=== PATIENT | female | born 1965 | race Caucasian/White ===

== ENCOUNTER 2016-11-17 21:25 | Emergency (ER) | payer OTHER, BC ==
[~2016-11-17 21:25] MED LIST: ACTOS30 MG PO; BENICAR20 MG PO; BENTYL20 MG PO; GLUCOTROL5 MG PO; LOW DOSE ASPIRI81 M1 PO; MULTIVITAMIN1 TAB PO; NORCO 5/325 TAB1 TAB PO; PRILOSEC20 MG PO
[2016-11-17] MEDS ORDERED: NOVOLOG MI100 UNITS/ SC (22:26)
[2016-11-17] MEDS ORDERED: AMLODIPINE BESI25 GM MC (22:26)
[2016-11-17] MEDS ORDERED: LIPITOR20 M1 PO (22:26)
[2016-11-17] MEDS ORDERED: COZAAR50 M1 PO (22:26)
[2016-11-17] MEDS ORDERED: HYDROCODON-ACE1 EA16 PO (23:19)
== END 2016-11-17 23:26 ==
LOC: EDMED 21:25
DX: S70.11XA Contusion of right thigh, initial encounter (principal); E11.9 Type 2 diabetes mellitus without complications; I10 Essential (primary) hypertension; Z79.4 Long term (current) use of insulin; Z79.82 Long term (current) use of aspirin; Z79.899 Other long term (current) drug therapy; W10.9XXA Fall (on) (from) unspecified stairs and steps, initial encounter; Y92.69 Other specified industrial and construction area as the place of occurrence of the external cause; Y99.0 Civilian activity done for income or pay; E66.01 Morbid (severe) obesity due to excess calories